=== PATIENT | female | born 1955 | race Caucasian/White ===

== ENCOUNTER 2017-09-10 06:28 | Emergency (ER) | payer BC, OTHER ==
[~2017-09-10 06:28] MED LIST: AMBI12.5; ASPI81TA82 PO; CALC500T19 PO; CRES20TA PO; FENO160T2 PO; HUMALOG SUBD; LOSA50TA PO; MULT-65 PO; VITA20002 PO; VITA50TA10 PO
[2017-09-10 06:30] VITALS: BP 168/91; PULSE 82; RESP 18; TEMP 97.2; O2SAT 99
[2017-09-10 06:41] VITALS: BP 147/64; PULSE 79; RESP 18; O2SAT 99
[2017-09-10 07:10] LABS: AUTOMATED NEUTROPHIL # 4.5 TH/MM3 (1.8-7.7); BASOPHIL # 0.1 TH/MM3 (0-0.2); BASOPHIL % 0.9 % (0.0-2.0); EOSINOPHIL # 0.2 TH/MM3 (0-0.4); EOSINOPHIL % 2.1 % (0.0-4.0); HEMATOCRIT 41.9 % (35.0-46.0); HEMOGLOBIN 14.1 GM/DL (11.6-15.3); LYMPH % 38.4 % (9.0-44.0); LYMPHOCYTE # 3.3 TH/MM3 (1.0-4.8); MEAN CELL VOLUME 90.2 FL (80.0-100.0); MEAN CORPUSCULAR HEMOGLOBIN 30.4 PG (27.0-34.0); MEAN CORPUSCULAR HGB CONC 33.7 % (32.0-36.0); MEAN PLATELET VOLUME 8.1 FL (7.0-11.0); MONO % 5.6 % (0.0-8.0); MONOCYTE # 0.5 TH/MM3 (0-0.9); PLATELET COUNT 187 TH/MM3 (150-450); RED BLOOD COUNT 4.64 MIL/MM3 (4.00-5.30); RED CELL DISTRIBUTION WIDTH 13.2 % (11.6-17.2); WHITE BLOOD COUNT 8.5 TH/MM3 (4.0-11.0)
--- NOTE | 2017-09-10 07:11 | PD ---
HPI Chief Complaint: Flank/Kidney Pain Time Seen by Provider: 07:01 Travel History International Travel<30 days: No Contact w/Intl Traveler<30days: No Traveled to known affect area: No History of Present Illness HPI 62yo F with PMH of recurrent UTI currently on bactrim since 09/05 for UTI, HTN, HLD, DM presents to the ED with c/o right back pain radiating to right flank and right mid abdomen. +Nausea. +Dysuria. Denies any fever, chest pain, sob, vomiting, hematuria, focal weakness or numbness. Pt has some cough. PSH include hysterectomy, cholecystectomy, appendectomy. Pt also with history of kidney stones. PFSH Past Medical History Arthritis: No Asthma: No Autoimmune Disease: No Blood Disorders: No Anxiety: Yes Cancer: No Cardiovascular Problems: No High Cholesterol: Yes Chemotherapy: No Chest Pain: No Congestive Heart Failure: No COPD: No Cerebrovascular Accident: No Diabetes: Yes Patient Takes Glucophage: No Diminished Hearing: No Endocrine: Yes Gastrointestinal Disorders: Yes GERD: Yes (COLONOSCOPY AND ENDOSCOPY DONE RECENTLY) Glaucoma: No Genitourinary: Yes Headaches: No Hiatal Hernia: No Immune Disorder: No Kidney Stones: Yes Musculoskeletal: No Neurologic: No Psychiatric: No Reproductive: No Respiratory: No Immunizations Current: Yes Migraines: No Myocardial Infarction: No Pancreatitis: Yes Radiation Therapy: No Renal Failure: No Seizures: No Sleep Apnea: No Thyroid Disease: No Ulcer: No Past Surgical History Abdominal Surgery: Yes (APPENDECTOMY, CHOLECYSTECTOMY) AICD: No Appendectomy: Yes Arteriovenous Shunt: No Cholecystectomy: Yes Genitourinary Surgery: Yes (LITHOTRIPSY X3 8 YEARS AGO) Gynecologic Surgery: Yes (HYSTERECTOMY) Hysterectomy: Yes ([facility]) Insulin Pump: Yes Joint Replacement: No Pacemaker: No Tonsillectomy: Yes Other Surgery: Yes Social History Alcohol Use: No Tobacco Use: No Substance Use: No Allergies-Medications (Allergen,Severity, Reaction): Coded Allergies: aspirin (Unverified Allergy, Severe, UPSET STOMACH, 09/10/17) diatrizoate meglumine (Unverified Allergy, Severe, Anaphylaxis, 09/10/17) gadobenic acid (Unverified Allergy, Severe, Anaphylaxis, 09/10/17) gadodiamide (Unverified Allergy, Severe, Anaphylaxis, 09/10/17) gadoteridol (Unverified Allergy, Severe, Anaphylaxis, 09/10/17) iodixanol (Unverified Allergy, Severe, Anaphylaxis, 09/10/17) iohexol (Unverified Allergy, Severe, Anaphylaxis, 09/10/17) penicillin G (Unverified Allergy, Severe, HIVES, 09/10/17) phenazopyridine (Unverified Allergy, Severe, HIVES, 09/10/17) Reported Meds & Prescriptions Reported Meds & Active Scripts Active Hydrocodone-Acetaminophen 5-325 mg Tab 1 Tab PO Q6H PRN Zofran Odt (Ondansetron Odt) 4 Mg Tab 4 Mg SL Q12HR PRN Losartan Potassium 50 MG (Losartan Potassium) 50 Mg Tab 50 Mg PO DAILY Reported Crestor (Rosuvastatin Calcium) 20 Mg Tab 1 Tab PO DAILY Calcium 500 Mg Tab 500 Mg PO DAILY Vitamin D-3 (Cholecalciferol) 2 000 Tab 2,000 Unit PO DAILY Vitamin D-3 (Cholecalciferol) 2 000 Tab 2,000 Unit PO DAILY Vitamin B-12 (Cyanocobalamin) 50 Mcg Tab 50 Mcg PO DAILY Multi-Vitamin Daily (Multivitamins) Daily Tab 1 Tab PO DAILY Aspir-81 (Aspirin) 81 Mg Tab 81 Mg PO DAILY Fenofibrate 160 Mg Tab 160 Mg PO DAILY Humalog (Insulin Human Lispro) 100 Units/Ml Inj 200 U SUBD DAILY Ambien Cr (Zolpidem Tartrate) 12.5 Mg Tab Review of Systems Except as stated in HPI: all other systems reviewed are Neg Physical Exam Narrative GENERAL: 62yo F in moderate distress. SKIN: Focused skin assessment warm/dry. HEAD: Atraumatic. Normocephalic. EYES: Pupils equal and round. No scleral icterus. No injection or drainage. ENT: No nasal bleeding or discharge. Mucous membranes pink and moist. NECK: Trachea midline. No JVD. CARDIOVASCULAR: Regular rate and rhythm. No murmur appreciated. RESPIRATORY: No accessory muscle use. Clear to auscultation. Breath sounds equal bilaterally. GASTROINTESTINAL: Abdomen soft, mild ttp right mid abdomen. No rebound tenderness or guarding. BACK: +CVA tenderness on right. MUSCULOSKELETAL: No obvious deformities. No clubbing. No cyanosis. No edema. NEUROLOGICAL: Awake and alert. No obvious cranial nerve deficits. Motor grossly within normal limits. Normal speech. PSYCHIATRIC: Appropriate mood and affect; insight and judgment normal. Data Data Last Documented VS Vital Signs Date Time Temp Pulse Resp B/P (MAP) Pulse Ox O2 Delivery O2 Flow Rate FiO2 09/10/17 09:51 09/10/17 06:41 79 18 99 Room Air 09/10/17 06:30 97.2 Orders Orders Complete Blood Count With Diff (09/10/17 06:41) Basic Metabolic Panel (Bmp) (09/10/17 06:41) Urinalysis - C+S If Indicated (09/10/17 06:41) Lipase (09/10/17 06:43) Ct Abd/Pel W/O Iv Contrast (09/10/17 ) Ketorolac Inj (Toradol Inj) (09/10/17 07:15) Ondansetron Odt (Zofran Odt) (09/10/17 07:15) Urine Culture (09/10/17 06:50) Morphine Inj (Morphine Inj) (09/10/17 08:00) Metoclopramide Inj (Reglan Inj) (09/10/17 08:15) Ceftriaxone Inj (Rocephin Inj) (09/10/17 08:15) Ed Discharge Order (09/10/17 09:40) Labs Laboratory Tests Test 09/10/17 06:45 09/10/17 06:50 White Blood Count 8.5 TH/MM3 Red Blood Count 4.64 MIL/MM3 Hemoglobin 14.1 GM/DL Hematocrit 41.9 % Mean Corpuscular Volume 90.2 FL Mean Corpuscular Hemoglobin 30.4 PG Mean Corpuscular Hemoglobin Concent 33.7 % Red Cell Distribution Width 13.2 % Platelet Count 187 TH/MM3 Mean Platelet Volume 8.1 FL Neutrophils (%) (Auto) 53.0 % Lymphocytes (%) (Auto) 38.4 % Monocytes (%) (Auto) 5.6 % Eosinophils (%) (Auto) 2.1 % Basophils (%) (Auto) 0.9 % Neutrophils # (Auto) 4.5 TH/MM3 Lymphocytes # (Auto) 3.3 TH/MM3 Monocytes # (Auto) 0.5 TH/MM3 Eosinophils # (Auto) 0.2 TH/MM3 Basophils # (Auto) 0.1 TH/MM3 CBC Comment DIFF FINAL Differential Comment Blood Urea Nitrogen 23 MG/DL Creatinine 1.40 MG/DL Random Glucose 351 MG/DL Calcium Level 9.4 MG/DL Sodium Level 132 MEQ/L Potassium Level 4.9 MEQ/L Chloride Level 101 MEQ/L Carbon Dioxide Level 19.4 MEQ/L Anion Gap 12 MEQ/L Estimat Glomerular Filtration Rate 38 ML/MIN Lipase 289 U/L Urine Color YELLOW Urine Turbidity HAZY Urine pH 5.0 Urine Specific [place] 1.018 Urine Protein 100 mg/dL Urine Glucose (UA) >=500 mg/dL Urine Ketones 20 mg/dL Urine Occult Blood NEG Urine Nitrite NEG Urine Bilirubin NEG Urine Urobilinogen LESS THAN 2 mg/dL Urine Leukocyte Esterase SMALL Urine RBC 1 /hpf Urine WBC 15 /hpf Urine Squamous Epithelial Cells 1 /hpf Urine Bacteria MOD /hpf Urine Hyaline Casts 1 /lpf Microscopic Urinalysis Comment CULTURE INDICATED MDM Medical Decision Making Medical Screen Exam Complete: Yes Emergency Medical Condition: Yes Differential Diagnosis Pyelonephritis vs. nephrolithiasis vs. musculoskeletal pain Narrative Course 62yo F with PMH of nephrolithiasis here with right flank pain. Labs reviewed, no leukocytosis. H/H normal. Mild hyponatremia. BUN/creatinine is mildly elevated at 23/1.40. This is mildly increased from creatinine of 0.91 in 2014. UA showed small leukocyte. WBC 15. Pt is already on bactrim but feels nauseous now and has not taken her bactrim today so will give a dose of ceftriaxone. CT a/p showed multiple renal stones without signs of obstruction. Scattered mesenteric calcifications. Do not see inflammatory changes in the abdomen or pelvis. Pt given zofran and toradol but was still vomiting and in pain so given reglan and morphine. Pt reevaluated at bedside and pain and nausea has resolved. I discussed with patient the option of observation or follow up with urology as outpatient. Pt is currently tolerating PO and pain has improved so she would like to try outpatient follow up first. Return precautions given. Diagnosis Primary Impression: Pyelonephritis Referrals: Jose Luis Leal MD call for appointment Patient Instructions: General Instructions Departure Forms: Tests/Procedures, Work Release Enter return to work date: Sep 12, 2017 Additional Instructions: Please follow up with urology or your primary care physician in 1-2 days. If you have fever, worsening pain, vomiting and unable to keep anything down, then you will have to return to the ED. You can continue taking your antibiotics. Med/Other Pt SpecificInfo: Prescription(s) given Scripts Hydrocodone-Acetaminophen (Hydrocodone-Acetaminophen) 5-325 mg Tab 1 TAB PO Q6H Y for PAIN, #6 TAB 0 Refills Prov: Molly Matos DO 09/10/17 Ondansetron Odt (Zofran Odt) 4 Mg Tab 4 MG SL Q12HR Y for Nausea/Vomiting, #7 TAB 0 Refills Prov: Molly Matos DO 09/10/17 Disposition: 01 DISCHARGE HOME Condition: Stable Molly Matos DO Sep 10, 2017 07:11
[2017-09-10] MEDS ORDERED: ONDANSETRON ODT 4 MG TAB PO ONE (07:15)
[2017-09-10] MEDS ORDERED: KETOROLAC TROMETHAMINE 30 MG/ML (IVP) VIAL IV PUSH ONE (07:15)
[2017-09-10 07:23] LABS: BACTERIA, URINE MOD /hpf; BILIRUBIN, URINE NEG (NEG); BLOOD, URINE NEG (NEG); GLUCOSE,URINE >=500 mg/dL (NEG); HYALINE CAST, URINE 1 /lpf (RARE); KETONE, URINE 20 mg/dL (NEG); NITRITE,URINE NEG (NEG); SQUAMOUS EPITHELIAL CELL URINE 1 /hpf (0-5); URINE COLOR YELLOW (YELLW/STRAW); URINE LEUKOCYTE ESTERASE SMALL (NEG)
[2017-09-10 07:36] LABS: BICARBONATE 19.4 MEQ/L (21.0-32.0); CALCIUM 9.4 MG/DL (8.5-10.1); CREATININE 1.4 MG/DL (0.50-1.00)
[2017-09-10] MEDS ORDERED: MORPHINE SULFATE 8 MG/ML INJ IV PUSH ONE (08:00)
[2017-09-10] MEDS ORDERED: cefTRIAXone INJ 1,000 MG in SODIUM CHLORIDE 0.9% INJ 100 ML IV ONE (08:15)
[2017-09-10] MEDS ORDERED: METOCLOPRAMIDE INJ 10 MG in SODIUM CHLORIDE 0.9% INJ 50 ML IV ONE (08:15)
--- NOTE | 2017-09-10 08:55 | RADRPT ---
EXAM DATE: 09/10/2017 7:52 AM EDT AGE/SEX: 62 years / Female INDICATIONS: Nausea and abdomen pain with history of renal stones. CLINICAL DATA: This is the patient's initial encounter. Patient reports that signs and symptoms have been present for 1 day and indicates a pain score of 5/10. MEDICAL/SURGICAL HISTORY: Renal calculi. Lithotripsy. Hysterectomy. Appendectomy. Cholecyste ctomy RADIATION DOSE: 12.17 CTDI (mGy) COMPARISON: No prior exams available for comparison. TECHNIQUE: Multiple contiguous axial images were obtained through the abdomen. Images were obtained using multiple row detector helical technique. Using dose reduction techniques, radiation dose was ke pt as low as reasonably achievable to obtain optimal diagnostic quality images. FINDINGS: The lower lungs are clear. Mild fatty replacement to the portions of liver visualized. Spleen is unremarkable. Unremarkable. Adrenal glands appear normal Moderate vascular calcifications are evident including the origin of the SMA Right kidney: There are multiple stones in the right kidney largest measuring 1 cm in the upper pole. There are no calcifications along the expected course of the right ureter. There is no perinephric s tranding identified. Left kidney: Multiple stones are seen in the left kidney. Left kidney is smaller than the right. The largest stone measures 1 cm. There is no perinephric stranding. There are no calcifications along the expected course of the left ureter. Scattered mesenteric calcifications are present. There are no inflammatory changes in the abdomen. Region of the cecum and terminal ileum appear unremarkable. There is no significant bowel distention In the pelvis moderate vascular calcifications are noted. Mesenteric calcifications are evident. Larg e bolus of stool is seen in the rectum. There is no free fluid. The abdominal cha intact. Degenerative changes are seen in the lower lumbar spine and both SI joints. CONCLUSION: 1. Multiple renal stones without signs of obstruction 2. Scattered mesenteric calcifications 3. Do not see inflammatory changes in the abdomen or pelvis 4. Bowel gas pattern is unremarkable. Electronically signed by: William Ocampo MD 09/10/2017 8:54 AM EDT
[2017-09-10] MEDS ORDERED: ZOFR4TAB3 SL ×2 (09:43→09:55)
[2017-09-10] MEDS ORDERED: HYDR-3516 PO ×2 (09:43→09:55)
== END 2017-09-10 10:11 | disposition home or self-care (01) ==
LOC: NEPC 06:28
DX: N12 Tubulo-interstitial nephritis, not specified as acute or chronic (principal); N39.0 Urinary tract infection, site not specified; B96.20 Unspecified Escherichia coli [E. coli] as the cause of diseases classified elsewhere; E11.9 Type 2 diabetes mellitus without complications; E78.00 Pure hypercholesterolemia, unspecified; I10 Essential (primary) hypertension; E78.5 Hyperlipidemia, unspecified; Z79.4 Long term (current) use of insulin; Z88.8 Allergy status to other drugs, medicaments and biological substances
CPT/HCPCS: 74176; 80048; 81001; 83690; 85025; 87077; 87086; 87186; 96374; 96375; 99284; J0696; J1885; J2270; J2765